=== PATIENT | male | born 1950 | race Caucasian/White ===

== ENCOUNTER 2018-05-01 07:15 | Emergency (ER) | payer MEDICARE ==
[~2018-05-01] VITALS: Ht 172.7 cm; Wt 90.7 kg
[2018-05-01] MEDS ORDERED: IV NORMAL SALINE 1000ML BAG 1,000 ML IV SCH (07:39)
--- NOTE | 2018-05-01 07:43 | PHYS DOC ---
Adult General Chief Complaint Chief Complaint: FLANK PAIN HPI HPI Patient is a 67-year-old male who presents with complaint of right-sided flank/ back pain that started early this morning about 4:00. Patient states that the pain waxes and wanes. He states the pain is very similar to a kidney stone pain but states that his story clearly when he has had kidney stones, the pain has wrapped around his side as well. He indicates the pain is primarily in his right lower back but states that at times when the pain is severe he feels a pulling in his right groin. He denies any nausea or vomiting and also denies any diaphoresis. Currently rates his pain at about a 4 or 5 out of 10 but states that at its worse it's been an 8 out of 10. He denies any chest pain or shortness of breath. He also denies any fever. Review of Systems Review of Systems Constitutional: Denies fever or chills [] Respiratory: Denies cough or shortness of breath [] Cardiovascular: Denies chest pain [] GI: Denies abdominal pain, nausea, vomiting or diarrhea [] : Denies dysuria or hematuria. Complains of right flank pain [] Musculoskeletal: Complains of right sided lower back pain [] All other systems were reviewed and found to be within normal limits, except as documented in this note. Current Medications Current Medications Current Medications Medications (Trade) Dose Ordered Sig/Heaven Start Time Stop Time Status Last Admin Dose Admin Ketorolac Tromethamine (Toradol) 15 mg 1X ONCE 05/01/18 08:15 05/01/18 08:16 DC 05/01/18 08:18 15 MG Sodium Chloride 1,000 ml @ 1,000 mls/hr Q1H 05/01/18 07:39 05/01/18 08:38 DC 05/01/18 08:17 1,000 MLS/HR Allergies Allergies Allergies Coded Allergies Type Severity Reaction Last Updated Verified No Known Drug Allergies 05/01/18 No Physical Exam Physical Exam Constitutional: Well developed, well nourished, no acute distress, non-toxic appearance. [] HENT: Normocephalic, atraumatic, bilateral external ears normal, oropharynx moist, no oral exudates, nose normal. [] Eyes: PERRLA, EOMI, conjunctiva normal, no discharge. [] Neck: Normal range of motion, no tenderness, supple, no stridor. [] Cardiovascular:Heart rate regular rhythm, no murmur [] Lungs & Thorax: Bilateral breath sounds clear to auscultation [] Abdomen: Bowel sounds normal, soft, no tenderness, no masses, no pulsatile masses. [] Skin: Warm, dry, no erythema, no rash. [] Back: No tenderness, no CVA tenderness. [] Extremities: No tenderness, no cyanosis, no clubbing, ROM intact, no edema. [] Neurologic: Alert and oriented X 3, normal motor function, normal sensory function, no focal deficits noted. [] Current Patient Data Vital Signs Vital Signs Date Time Temp Pulse Resp B/P (MAP) Pulse Ox O2 Delivery O2 Flow Rate FiO2 05/01/18 07:15 97.6 76 20 213/119 (150) 99 Room Air 97.6 Lab Values Laboratory Tests Test 05/01/18 07:50 White Blood Count 7.8 x10^3/uL (4.0-11.0) Red Blood Count 4.55 x10^6/uL (4.30-5.70) Hemoglobin 14.9 g/dL (13.0-17.5) Hematocrit 43.7 % (39.0-53.0) Mean Corpuscular Volume 96 fL (79-100) Mean Corpuscular Hemoglobin 33 pg (25-35) Mean Corpuscular Hemoglobin Concent 34 g/dL (31-37) Red Cell Distribution Width 13.0 % (11.5-14.5) Platelet Count 235 x10^3/uL (140-400) Neutrophils (%) (Auto) 65 % (31-73) Lymphocytes (%) (Auto) 25 % (24-48) Monocytes (%) (Auto) 9 % (0-9) Eosinophils (%) (Auto) 2 % (0-3) Basophils (%) (Auto) 1 % (0-3) Neutrophils # (Auto) 5.0 x10^3uL (1.8-7.7) Lymphocytes # (Auto) 1.9 x10^3/uL (1.0-4.8) Monocytes # (Auto) 0.7 x10^3/uL (0.0-1.1) Eosinophils # (Auto) 0.1 x10^3/uL (0.0-0.7) Basophils # (Auto) 0.0 x10^3/uL (0.0-0.2) Sodium Level 139 mmol/L (136-145) Potassium Level 4.3 mmol/L (3.5-5.1) Chloride Level 105 mmol/L (98-107) Carbon Dioxide Level 24 mmol/L (21-32) Anion Gap 10 (6-14) Blood Urea Nitrogen 16 mg/dL (8-26) Creatinine 1.1 mg/dL (0.7-1.3) Estimated GFR (Cockcroft-Gault) 66.8 BUN/Creatinine Ratio 15 (6-20) Glucose Level 113 mg/dL (70-99) H Calcium Level 9.0 mg/dL (8.5-10.1) Total Bilirubin 0.4 mg/dL (0.2-1.0) Aspartate Amino Transferase (AST) 21 U/L (15-37) Alanine Aminotransferase (ALT) 27 U/L (16-63) Alkaline Phosphatase 79 U/L (46-116) Total Protein 7.2 g/dL (6.4-8.2) Albumin 3.6 g/dL (3.4-5.0) Albumin/Globulin Ratio 1.0 (1.0-1.7) Laboratory Tests 05/01/18 07:50 Laboratory Tests 05/01/18 07:50 EKG EKG [] Radiology/Procedures Radiology/Procedures [] Impressions: IMPRESSION: 1. There is no calculi identified within the kidneys and ureters. There are calculi identified within the dependent portion of the urinary bladder measuring up to 2 mm which may represent recently passed calculi. Correlate with resolution of symptoms. Minimal asymmetric prominence of the right ureter is noted without lalit hydroureteronephrosis. 2. Renal cortical cystic lesions most suggestive of simple renal cysts. Further evaluation with renal ultrasound may be of benefit for better characterization. 3. Infrarenal abdominal aortic aneurysm measuring 3.1 x 2.6 cm. 4. 7 mm hypodensity in the lateral segment of the left hepatic lobe is too small to characterize, however statistically favor to represent a simple cyst or hemangioma. Course & Med Decision Making Course & Med Decision Making Pertinent Labs and Imaging studies reviewed. (See chart for details) [] Dragon Disclaimer Dragon Disclaimer This electronic medical record was generated, in whole or in part, using a voice recognition dictation system. Departure Departure Impression: Primary Impression: Renal colic on right side Disposition: HOME, SELF-CARE Condition: STABLE Referrals: NO PCP (PCP) Patient Instructions: Kidney Stones Additional Instructions: Take prescribed medication as directed and follow-up with your primary care provider in the next few days. Scripts Naproxen (NAPROSYN) 500 Mg Tablet 1 TAB PO BID PRN for PAIN, #20 TAB Prov: ELEN ZARAGOZA Jr. DO 05/01/18 Orphenadrine Citrate (ORPHENADRINE CITRATE) 100 Mg Tablet.er 1 TAB PO BID PRN for MUSCLE SPASMS, #20 TAB 1 Refill Prov: ELEN ZARAGOZA Jr. DO 05/01/18 Hydrocodone/Apap 5-325 (NORCO 5-325 TABLET) 1 Each Tablet 1-2 EACH PO PRN Q6HRS PRN for PAIN, #15 as needed for pain Prov: ELEN ZARAGOZA Jr. DO 05/01/18 ELEN ZARAGOZA Jr. DO May 01, 2018 07:43
[2018-05-01 08:01] LABS: BASO % 1 % (0-3); EOS # 0.1 x10^3/uL (0.0-0.7); EOS % 2 % (0-3); HEMATOCRIT 43.7 % (39.0-53.0); HEMOGLOBIN 14.9 g/dL (13.0-17.5); LYMPH # 1.9 x10^3/uL (1.0-4.8); LYMPH % 25 % (24-48); MEAN CORPUSCULAR HEMOGLOBIN 33 pg (25-35); MEAN CORPUSCULAR HGB CONC 34 g/dL (31-37); MEAN CORPUSCULAR VOLUME 96 fL (79-100); MONO # 0.7 x10^3/uL (0.0-1.1); MONO % 9 % (0-9); NEUT % 65 % (31-73); PLATELET COUNT 235 x10^3/uL (140-400); RED BLOOD COUNT 4.55 x10^6/uL (4.30-5.70); WHITE BLOOD COUNT 7.8 x10^3/uL (4.0-11.0)
[2018-05-01] MEDS ORDERED: KETOROLAC 30 MG/ML VIAL. IV ONE (08:15)
[2018-05-01 08:20] LABS: CREATININE 1.1 mg/dL (0.7-1.3); GFR 66.8; POTASSIUM 4.3 mmol/L (3.5-5.1)
[2018-05-01 08:22] LABS: ALBUMIN 3.6 g/dL (3.4-5.0); TOTAL BILIRUBIN 0.4 mg/dL (0.2-1.0); TOTAL PROTEIN 7.2 g/dL (6.4-8.2)
--- NOTE | 2018-05-01 08:33 | RAD ---
PQRS Compliance Statement: One or more of the following individualized dose reduction techniques were utilized for this examination: 1. Automated exposure control 2. Adjustment of the mA and/or kV according to patient size 3. Use of iterative reconstruction technique CT abdomen/pelvis without contrast 05/01/2018 8:06 AM INDICATION: Right flank pain. COMPARISON: None available TECHNIQUE: Multiple axial CT images of the abdomen and pelvis were obtained without intravenous contrast. Coronal and sagittal reformats are provided. FINDINGS: The lung bases are clear. There is mild pulmonary emphysema. Heart size is within normal limits. There is a 7 mm hypodensity in the lateral segment left hepatic lobe which is too small to characterize, however statistically favor to represent a simple cyst or hemangioma. Spleen is normal in size. Bilateral lipid rich adrenal adenomas are visualized measuring 13 mm x 15 mm on the left and 19 x 16 mm on the right. Hounsfield units appeared below 0. Pancreas is normal in appearance. Gallbladder is present. There is an infrarenal abdominal aortic aneurysm measuring 3.1 x 2.6 cm. Mild to moderate atherosclerotic calcination of the abdominal aorta are present. There are no pathologically enlarged lymph nodes in abdomen or pelvis. There is no free fluid or free intraperitoneal air. Multiple renal cystic lesions are identified in the kidneys bilaterally. These findings are incompletely characterized on noncontrast examination. Majority of the lesions have density most suggestive of simple fluid, suggestive of simple renal cysts. The largest lesion in the right kidney is identified in the anterior interpolar right kidney measuring 7.3 x 8.1 cm. In the left kidney there is a 5.0 x 4.9 cm cyst in the superior pole. There are no calculi identified within kidneys and ureters. There is no hydronephrosis. There is a 1 mm high attenuation focus in the posterolateral left bladder (series 2, image 198) as well as a 2 mm suspected calculus in the posterior dependent portion of the urinary bladder (series 2, image 202). Consideration may be given for passed renal calculi. Small and large bowel are normal in caliber. There is no evidence for bowel obstruction. There are no pericolonic inflammatory changes. A normal, nondilated appendix is visualized without adjacent inflammatory changes. The urinary bladder is within normal limits given degree of distention. Prostate and seminal vesicles are normal in appearance. No suspicious pelvic masses are identified. There are no suspicious osseous lesions identified. Superior endplate compression deformity appears chronic at L2, likely secondary to superior endplate Schmorl's node. IMPRESSION: 1. There is no calculi identified within the kidneys and ureters. There are calculi identified within the dependent portion of the urinary bladder measuring up to 2 mm which may represent recently passed calculi. Correlate with resolution of symptoms. Minimal asymmetric prominence of the right ureter is noted without lalit hydroureteronephrosis. 2. Renal cortical cystic lesions most suggestive of simple renal cysts. Further evaluation with renal ultrasound may be of benefit for better characterization. 3. Infrarenal abdominal aortic aneurysm measuring 3.1 x 2.6 cm. 4. 7 mm hypodensity in the lateral segment of the left hepatic lobe is too small to characterize, however statistically favor to represent a simple cyst or hemangioma. Electronically signed by: Kya Mac MD (05/01/2018 8:30 AM) [id number]
[2018-05-01] MEDS ORDERED: NAPR-683 PO (09:51)
[2018-05-01] MEDS ORDERED: ORPH100T PO (09:51)
[2018-05-01] MEDS ORDERED: HYDR-971 PO (09:51)
[2018-05-01 09:54] VITALS: BP 196/91
== END 2018-05-01 10:05 | disposition home or self-care (01) ==
LOC: ER 07:15
DX: N23 Unspecified renal colic (principal); I71.4 Abdominal aortic aneurysm, without rupture
CPT/HCPCS: 36415; 74176; 80053; 85025; 96374; 99285; J1885; J7030